=== PATIENT | male | born 1995 | race African-American/Black ===

== ENCOUNTER 2019-09-07 07:42 | Emergency (ER) | payer SELFPAY ==
[~2019-09-07] VITALS: Ht 182.9 cm; Wt 84.1 kg
[2019-09-07 07:55] VITALS: BP 123/84; Ht 182.9 cm; Wt 84.1 kg
[2019-09-07] MEDS ORDERED: ULTRAM50 MG PO (08:33)
== END 2019-09-07 08:43 | disposition home or self-care (01) ==
LOC: D.ER 07:42
DX: S62.306A Unspecified fracture of fifth metacarpal bone, right hand, initial encounter for closed fracture (principal); W22.8XXA Striking against or struck by other objects, initial encounter; Y93.9 Activity, unspecified; Y92.9 Unspecified place or not applicable; S60.221A Contusion of right hand, initial encounter